=== PATIENT | female | born 1955 | race Caucasian/White ===

== ENCOUNTER 2018-08-06 08:06 | Day surgery (SDC) ==
[2018-08-06] MEDS: BETADINE OPTH PREP OP PRN ×2 (08:55→09:25)
[2018-08-06] MEDS: TETRACAINE 0.5% UNIT-DOSE OP PRN ×2 (08:55→09:25)
[2018-08-06] MEDS: CYCLOGYL 2% OPTH OP PRN ×3 (08:56→09:06)
[2018-08-06] MEDS ORDERED: BSS WITH EPINEPHRINE OP ONE (09:05)
[2018-08-06] MEDS ORDERED: LIDOCAINE 1%/PHENYLEPHRINE 1.5% BSS (SURGERY) INTRAOCULA ONE (09:05)
[2018-08-06] MEDS ORDERED: ZOFRAN 4 MG/2 ML IVP ONE (09:05)
[2018-08-06] MEDS ORDERED: LIDOCAINE 1% 20 ML MDV ID STA (09:05)
[2018-08-06] MEDS ORDERED: DEX-MOXI-KETOR OPTH INJ 1/0.5/0.4 MG/ML IO ONE (09:05)
[2018-08-06] MEDS ORDERED: BRIMONIDINE TARTRATE 0.2% OPTH SOL OP PRN (09:05)
[2018-08-06 09:12] VITALS: TEMP 97.7
[2018-08-06] MEDS ORDERED: SUBLIMAZE ONE (09:40)
[2018-08-06] MEDS ORDERED: ZOFRAN 4 MG/2 ML ONE (09:40)
[2018-08-06] MEDS ORDERED: VERSED ONE (09:40)
[2018-08-06 16:55] VITALS: BP 132/69
== END 2018-08-06 10:25 | disposition home or self-care (01) ==
LOC: SURG 08:06
PROVIDERS: ATTEND Ophthalmology
DX: H25.12 Age-related nuclear cataract, left eye (principal)

== ENCOUNTER 2018-08-13 07:29 | Day surgery (SDC) ==
[2018-08-13] MEDS: TETRACAINE 0.5% UNIT-DOSE OP PRN ×2 (08:04→08:49)
[2018-08-13] MEDS: BETADINE OPTH PREP OP PRN ×2 (08:04→08:51)
[2018-08-13] MEDS: CYCLOGYL 2% OPTH OP PRN ×3 (08:05→08:15)
[2018-08-13] MEDS ORDERED: LIDOCAINE 1%/PHENYLEPHRINE 1.5% BSS (SURGERY) INTRAOCULA ONE (08:09)
[2018-08-13] MEDS ORDERED: DEX-MOXI-KETOR OPTH INJ 1/0.5/0.4 MG/ML IO ONE (08:09)
[2018-08-13] MEDS ORDERED: LIDOCAINE 1% 20 ML MDV ID STA (08:09)
[2018-08-13] MEDS ORDERED: BRIMONIDINE TARTRATE 0.2% OPTH SOL OP PRN (08:09)
[2018-08-13] MEDS ORDERED: ZOFRAN 4 MG/2 ML IVP ONE (08:09)
[2018-08-13] MEDS ORDERED: BSS WITH EPINEPHRINE OP ONE (08:09)
[2018-08-13] MEDS ORDERED: ZOFRAN 4 MG/2 ML ONE (08:42)
[2018-08-13] MEDS ORDERED: SUBLIMAZE ONE (08:42)
[2018-08-13] MEDS ORDERED: VERSED ONE (08:42)
[2018-08-13 12:15] VITALS: TEMP 98.4
[2018-08-13 13:58] VITALS: BP 112/68
== END 2018-08-13 09:55 | disposition home or self-care (01) ==
LOC: SURG 07:29
PROVIDERS: ATTEND Ophthalmology
DX: H25.11 Age-related nuclear cataract, right eye (principal)